=== PATIENT | female | born 2000 | race Caucasian/White ===

== ENCOUNTER 2018-02-19 03:58 | Emergency (ER) | payer OTHER ==
[2018-02-19] MEDS ORDERED: PHENAZOPYRIDINE HCL 200 MG TABLET PO ONE (04:31)
--- NOTE | 2018-02-19 04:33 | ER Document Report ---
ED GI/ - General Chief Complaint: Urinary Problem Stated Complaint: STOMACH PAIN Time Seen by Provider: 02/19/18 04:27 Notes: Patient is a 17-year-old female who comes emergency department for chief complaint of new onset pain in her lower abdomen with some radiation of the left side towards her flank, she also reports dysuria and urinary frequency. She is also constipated, had a formed bowel movement earlier today, none over the past 3 days otherwise. She states earlier she was nauseated, she denies vomiting, she denies fever. No history of kidney stones. Denies vaginal bleeding or discharge. No daily medications except control. Visiting from out of town. Denies any surgeries or medical history. TRAVEL OUTSIDE OF THE [place] IN LAST 30 DAYS: No - Related Data Allergies/Adverse Reactions: No Known Allergies Allergy (Unverified 02/19/18 04:02) Past Medical History - General Information source: Patient - Social History Smoking Status: Never Smoker Frequency of alcohol use: None Drug Abuse: None Lives with: Family Family History: Reviewed & Not Pertinent - Medical History Medical History: Negative Surgical Hx: Negative - Immunizations Immunizations up to date: Yes Hx Diphtheria, Pertussis, Tetanus Vaccination: Yes Review of Systems - Review of Systems Constitutional: No symptoms reported EENT: No symptoms reported Cardiovascular: No symptoms reported Respiratory: No symptoms reported Gastrointestinal: See HPI Genitourinary: See HPI Female Genitourinary: No symptoms reported Musculoskeletal: No symptoms reported Skin: No symptoms reported Hematologic/Lymphatic: No symptoms reported Neurological/Psychological: No symptoms reported Physical Exam - Vital signs Vitals: Temp Pulse Resp BP Pulse Ox 98.0 F 86 20 122/72 100 02/19/18 04:03 02/19/18 04:03 02/19/18 04:03 02/19/18 04:03 02/19/18 04:03 - Notes Notes: GENERAL: Alert, interacts well. No acute distress. HEAD: Normocephalic, atraumatic. EYES: Pupils equal, round, and reactive to light. Extraocular movements intact. ENT: Oral mucosa moist, tongue midline. NECK: Full range of motion. Supple. Trachea midline. LUNGS: Clear to auscultation bilaterally, no wheezes, rales, or rhonchi. No respiratory distress. HEART: Regular rate and rhythm. No murmur ABDOMEN: Mild suprapubic tenderness, remaining abdomen is completely benign, no guarding, no rigidity. Non-distended. Bowel sounds present in all 4 quadrants. EXTREMITIES: Moves all 4 extremities spontaneously. No edema, normal radial and dorsalis pedis pulses bilaterally. No cyanosis. BACK: no cervical, thoracic, lumbar midline tenderness. No saddle anesthesia, normal distal neurovascular exam. No CVA tenderness. NEUROLOGICAL: Alert and oriented x3. Normal speech. [cranial nerves II through XII grossly intact]. PSYCH: Normal affect, normal mood. SKIN: Warm, dry, normal turgor. No rashes or lesions noted. Course - Re-evaluation Re-evalutation: Patient smiling and well-appearing. Patient has mild suprapubic tenderness but her remaining abdomen is soft and completely benign. No CVA tenderness. Vital signs unremarkable. Urinalysis obtained, shows moderate leukocyte esterase, no white blood cells, no bacteria, no nitrates. HCG is negative. Reevaluated patient, she states she threw up. She states now she feels fine. Repeated her abdominal exam and her exam shows no tenderness except for maybe some mild suprapubic tenderness. Patient reporting that she is having dysuria. Offered additional workup including laboratory testing, pelvic exam, and possibly even imaging with acute abdominal series or more. Patient declines. Patient requesting treatment for dysuria and her symptoms, states that she will come back if she worsens in anyway including returned vomiting, developing fever, return or worsening pain. Based on her evaluation I do have low suspicion of acute abdomen. Patient will be treated with Keflex, stool softener, nausea medication, and she agrees to return if she worsens in anyway. - Vital Signs Vital signs: Temp Pulse Resp BP Pulse Ox 98.0 F 86 20 122/72 100 02/19/18 04:03 02/19/18 04:03 02/19/18 04:03 02/19/18 04:03 02/19/18 04:03 - Laboratory Laboratory results interpreted by me: 02/19/18 04:50 Urine Blood MODERATE H Ur Leukocyte Esterase MODERATE H Discharge - Discharge Clinical Impression: Dysuria Nausea & vomiting Qualifiers: Vomiting type: unspecified Vomiting Intractability: non-intractable Qualified Code(s): R11.2 - Nausea with vomiting, unspecified Condition: Stable Disposition: HOME, SELF-CARE Additional Instructions: We are covering you for your urinary symptoms, take the Phenergan if needed for nausea as well, take the Colace stool softener for the next 2-3 days. Follow- up with primary care. Return here for more extensive workup and additional management if symptoms worsen including repeated vomiting, fever, worsening pain, or any other concerning or worsening symptoms. Prescriptions: Cephalexin Monohydrate [Keflex 500 mg Capsule] 500 mg PO QID #20 capsule Docusate Sodium [Colace 100 mg Capsule] 100 mg PO ASDIR PRN #30 capsule PRN Reason: Promethazine HCl [Phenergan 25 mg Tablet] 1 - 2 tab PO Q6H PRN #20 tablet PRN Reason: Referrals: LOCALMD,NO [Primary Care Provider] - Follow up as needed
[2018-02-19 05:17] LABS: APPEARANCE,URINE SLIGHTLY-CLOUDY; BILIRUBIN,URINE NEGATIVE (NEGATIVE); COLOR,URINE YELLOW; GLUCOSE, URINE NEGATIVE (NEGATIVE); KETONES,URINE NEGATIVE (NEGATIVE); LEUKOCYTE ESTERASE,URINE MODERATE (NEGATIVE); NITRITE,URINE NEGATIVE (NEGATIVE); PROTEIN,URINE NEGATIVE (NEGATIVE); URINE SPECIFIC GRAVITY 1.017; UROBILINOGEN,URINE NEGATIVE mg/dL (<2.0)
[2018-02-19] MEDS ORDERED: CEPHALEXIN 500 MG CAPSULE PO ONE (05:39)
[2018-02-19] MEDS ORDERED: ONDANSETRON 4 MG TAB.RAPDIS PO ONE (05:39)
[2018-02-19 06:20] VITALS: BP 113/71
== END 2018-02-19 05:50 | disposition home or self-care (01) ==
LOC: ER 03:58
DX: R30.0 Dysuria (principal); R11.2 Nausea with vomiting, unspecified; R10.32 Left lower quadrant pain; R35.0 Frequency of micturition; K59.00 Constipation, unspecified
CPT/HCPCS: 99283; 87086; 81025; 87088; 81001; S0119; J3490